=== PATIENT | male | born 1980 ===

== ENCOUNTER 2018-06-04 10:43 | Emergency (ER) | payer OTHER ==
[2018-06-04] MEDS ORDERED: Nitroglycerin 2% Ointment Foilpak UD TOP ONE (11:01)
[2018-06-04 11:08] LABS: BASO # 0.1 K/uL (0.0-0.2); BASO % 0.7 % (0.0-2.0); EOS # 0.1 K/uL (0.0-0.7); EOS % 1.6 % (0.0-4.0); HEMOGLOBIN 17.2 g/dL (12.0-18.0); LYMPH # 2.2 K/uL (1.0-4.3); LYMPH % 30.2 % (20.0-40.0); MEAN CELL VOLUME 88.9 fl (80.0-94.0); MEAN CORPUSCULAR HEMOGLOBIN 29.4 pg (27.0-31.0); MEAN CORPUSCULAR HGB CONC 33.1 g/dL (33.0-37.0); MEAN PLATELET VOLUME 8.6 fl (7.2-11.7); MONO # 0.8 K/uL (0.0-0.8); MONO % 10.9 % (0.0-10.0); NEUT # 4.2 K/uL (1.8-7.0); NEUT % 56.6 % (50.0-75.0); NRBC % 0.1 % (0.0-0.0); RBC 5.85 Mil/uL (4.40-5.90); RED CELL DISTRIBUTION WIDTH 13.5 % (11.5-14.5); WHITE BLOOD COUNT 7.4 K/uL (4.8-10.8)
[2018-06-04 11:13] LABS: PROTHROMBIN TIME 11.5 Seconds (9.8-13.1)
--- NOTE | 2018-06-04 11:14 | ED PDOC ---
HPI: Chest Pain Time Seen by Provider: 06/04/18 10:59 Chief Complaint (Nursing): Chest Pain Chief Complaint (Provider): Chest Pain History Per: Patient, EMS History/Exam Limitations: no limitations Onset/Duration Of Symptoms: Other (DENTAL TECHNOLOGIST) Additional Complaint(s): 38 years old male with no significant medical history brought to ER by EMS from [facility], where EKG was read as STIMI, for evaluation of chest pain. Patient was not given any medications at clinic. He states pain started this morning at rest. Patient reports he had similar pain the past and was diagnosed as gas and given GI medications. 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 Patient reports he was recently in [place], returned 3 days ago. PMD: non provided Past Medical History Reviewed: Historical Data, Nursing Documentation, Vital Signs Vital Signs: Last Vital Signs Temp 97.1 F L 06/04/18 10:54 Pulse 106 H 06/04/18 10:54 Resp 31 H 06/04/18 10:54 BP 154/102 H 06/04/18 10:54 Pulse Ox 100 06/04/18 10:54 - Medical History PMH: No Chronic Diseases Denies: Chronic Kidney Disease - Family History Family History: States: Unknown Family Hx - Social History Current smoker - smoking cessation education provided: No Alcohol: Social Drugs: Denies - Home Medications Home Medications: Ambulatory Orders Medication Instructions Recorded No Known Home Med 06/04/18 - Allergies Allergies/Adverse Reactions: Allergies Allergy/AdvReac Type Severity Reaction Status Date / Time No Known Allergies Allergy Verified 06/04/18 10:58 Review of Systems ROS Statement: Except As Marked, All Systems Reviewed And Found Negative Cardiovascular: Positive for: Chest Pain Physical Exam - Reviewed Nursing Documentation Reviewed: Yes Vital Signs Reviewed: Yes - Physical Exam Appears: Positive for: Non-toxic, No Acute Distress Head Exam: Positive for: ATRAUMATIC, NORMOCEPHALIC Skin: Positive for: Normal Color, Warm, Dry. Negative for: Cyanosis Cardiovascular/Chest: Positive for: Regular Rate, Rhythm, Tachycardia. Negative for: Murmur Respiratory: Positive for: Normal Breath Sounds Gastrointestinal/Abdominal: Positive for: Normal Exam, Soft, Other (Transverse surgical scar). Negative for: Tenderness Extremity: Positive for: Normal ROM, Other (Distal pulses 2+). Negative for: Deformity, Swelling Neurologic/Psych: Positive for: Alert, Oriented (x3) - Laboratory Results Result Diagrams: 06/04/18 11:00 06/04/18 11:00 - ECG O2 Sat by Pulse Oximetry: 100 (RA) Pulse Ox Interpretation: Normal Medical Decision Making Medical Decision Making: Time: 1056 --Code heart was called --EKG was sent to Dr. Ingram whose impression was not STIMI --Continue workup for chest pain --Code heart cancelled at this time --Consult women's health care nurse practitioner and reassess 1125 Chest X-Ray FINDINGS: LUNGS: Minor crowding. No focal infiltrate. PLEURA: No pneumothorax or pleural fluid seen. CARDIOVASCULAR: Normal. OSSEOUS STRUCTURES: No significant abnormalities. VISUALIZED UPPER ABDOMEN: Normal. OTHER FINDINGS: None. IMPRESSION: No focal infiltrate or CHF. [address] FINDINGS: PULMONARY ARTERIES: Exam is limited by motion and overlying artifact. No appreciable pulmonary ar jamison filling defect is identified in the central pulmonary arteries. Peripheral pulmonary arteries are limited by injection but appear to be patent without definite thrombus. AORTA: Aorta is normal in outline without evidence of intimal flap or aneurysmal dilatation. LUNGS: Mild dependent atelectasis is seen posteriorly at the lung bases with some minimal interstitial change. No segmental alveolar infiltrate is noted. Mild emphysematous changes are suspected. Minimal scarring in the lingula is not excluded. No endobronchial lesions are seen. PLEURAL SPACES: Unremarkable. No effusion or pneumothorax. HEART: Unremarkable. No cardiomegaly. No significant pericardial effusion. LYMPH NODES: No appreciable mediastinal or hilar adenopathy. No axillary adenopathy or supraclavicular adenopathy. Thoracic inlet is unremarkable. Visualized esophagus is within normal limits. BONES, CHEST WALL: Unremarkable. No fracture or destructive lesion OTHER FINDINGS: Unremarkable. IMPRESSION: Limited study although no appreciable filling defect is identified to suggest pulmonary embolism. Mild dependent atelectasis and/or scarring. No focal segmental alveolar infiltrate. No pleural effusion or pericardial effusion. 17:[address] Savanah Pierre who will follow up with patient tomorrow on an outpatient basis. Further discussion with mya reveals no syncope and no family history of sudden cardiac . Improvement with Toradol. Repeat EKG shows brugada pattern without ST elevation or other abnormality. Two sets of troponin are negative. Scribe Attestation: Documented by Mercy Giles, acting as a scribe for Delores Iglesias MD. Provider Scribe Attestation: All medical record entries made by the Scribe were at my direction and personally dictated by me. I have reviewed the chart and agree that the record accurately reflects my personal performance of the history, physical exam, medical decision making, and the department course for this patient. I have also personally directed, reviewed, and agree with the discharge instructions and disposition. Disposition - Clinical Impression Clinical Impression: Atypical chest pain - Disposition Referrals: Jd Pierre MD [Staff Provider] - Condition: IMPROVED Additional Instructions: Follow up with cardiology this week. If you develop chest pain or trouble breathing, call 911. Take Ibuprofen or Tylenol for mild pain. Instructions: Chest Pain That Is Not Caused by the Heart (DC) Forms: [employer] (Occitan) Print Language: NORWEGIAN
[2018-06-04 11:16] LABS: PARTIAL THROMBOPLASTIN TIME 42.7 Seconds (25.6-37.1)
[2018-06-04 11:18] LABS: BLOOD UREA NITROGEN 9 mg/dl (9-20); CALCIUM 9.5 mg/dL (8.4-10.2); GFR NON-AFRICAN AMERICAN > 60
--- NOTE | 2018-06-04 11:26 | RAD ---
Date of service: 06/04/2018 PROCEDURE: CHEST RADIOGRAPH, 1 VIEW HISTORY: chest pain COMPARISON: None available. FINDINGS: LUNGS: Minor crowding. No focal infiltrate. PLEURA: No pneumothorax or pleural fluid seen. CARDIOVASCULAR: Normal. OSSEOUS STRUCTURES: No significant abnormalities. VISUALIZED UPPER ABDOMEN: Normal. OTHER FINDINGS: None. IMPRESSION: No focal infiltrate or CHF.
[2018-06-04] MEDS ORDERED: Iodixanol 320 MG/ML 100 ML BOTTLE IV ONE (11:51)
--- NOTE | 2018-06-04 13:10 | CT ---
Date of service: 06/04/2018 PROCEDURE: CT Chest with contrast (Pulmonary Angiogram) HISTORY: chest pain following recent travel COMPARISON: None available. TECHNIQUE: Axial computed tomography images were obtained of the chest in the pulmonary arterial phase of enhancement. Coronal and sagittal reformatted images were created and reviewed. Intravenous contrast dose: 99 mL Radiation dose: Total exam DLP = 355 mGy-cm. This CT exam was performed using one or more of the following dose reduction techniques: Automated exposure control, adjustment of the mA and/or kV according to patient size, and/or use of iterative reconstruction technique. FINDINGS: PULMONARY ARTERIES: Exam is limited by motion and overlying artifact. No appreciable pulmonary artery filling defect is identified in the central pulmonary arteries. Peripheral pulmonary arteries are limited by injection but appear to be patent without definite thrombus. AORTA: Aorta is normal in outline without evidence of intimal flap or aneurysmal dilatation. LUNGS: Mild dependent atelectasis is seen posteriorly at the lung bases with some minimal interstitial change. No segmental alveolar infiltrate is noted. Mild emphysematous changes are suspected. Minimal scarring in the lingula is not excluded. No endobronchial lesions are seen. PLEURAL SPACES: Unremarkable. No effusion or pneumothorax. HEART: Unremarkable. No cardiomegaly. No significant pericardial effusion. LYMPH NODES: No appreciable mediastinal or hilar adenopathy. No axillary adenopathy or supraclavicular adenopathy. Thoracic inlet is unremarkable. Visualized esophagus is within normal limits. BONES, CHEST WALL: Unremarkable. No fracture or destructive lesion OTHER FINDINGS: Unremarkable. IMPRESSION: Limited study although no appreciable filling defect is identified to suggest pulmonary embolism. Mild dependent atelectasis and/or scarring. No focal segmental alveolar infiltrate. No pleural effusion or pericardial effusion.
[2018-06-04 16:20] VITALS: PULSE 79
[2018-06-04 17:26] VITALS: BP 118/77; RESP 16; TEMP 97.6
[2018-06-04 18:02] VITALS: O2SAT 100
--- NOTE | 2018-06-04 21:56 | CARD ---
APPROVED REPORT Date of service: 06/04/2018 EKG Measurement Heart [id number] MD 142P70 [id number] <Conclusion> Normal sinus rhythm Normal ECG
--- NOTE | 2018-06-04 21:59 | CARD ---
APPROVED REPORT Date of service: 06/04/2018 EKG Measurement Heart [id number] NC 130P70 [id number] <Conclusion> Normal sinus rhythm Incomplete right bundle branch block Borderline ECG
== END 2018-06-04 18:02 | disposition home or self-care (01) ==
LOC: H.ER 10:43
DX: R07.9 Chest pain, unspecified (principal)
CPT/HCPCS: 71045; 71275; 80048; 82948; 84484; 85025; 85378; 85610; 85730; 93005; 96374; 96375; 99285; J1885; Q9967